=== PATIENT | male | born 1990 | race Caucasian/White ===

== ENCOUNTER → 2021-06-21 16:19 | Outpatient (CLI) | payer OTHER, SELFPAY ==
--- NOTE | 2021-06-21 16:28 | MR_ITS ---
PROCEDURE: MR CERVICAL SPINE WO CON CLINICAL INDICATION: CERVICAL RADICULOPATHY COMPARISON: No exams were available for comparison TECHNIQUE: Standard multiplanar multiecho sequences are performed without contrast. 3-D MIP and myelographic images are also rendered and reviewed FINDINGS: Normal alignment. The craniocervical junction has an unremarkable appearance. C2-C3: Unremarkable. C3-C4: Mild bulging disc with uncovertebral hypertrophy causing moderate right and mild left foraminal narrowing. C4-C5: Unremarkable. C5-C6: Mild bulging disc. Mild left-sided foraminal narrowing from facet and uncovertebral hypertrophy. C6-C7: Degenerative disc disease with bulging disc with mild right and moderate left-sided foraminal narrowing. Canal stenosis at 10 mm. No cord impingement. C7-T1: Unremarkable. IMPRESSION: Multilevel cervical spondylosis. Please see above for detailed description at each level. No extruded herniated disc. Dictated by: Wilder Silva MD 06/24/2021 11:46 Wilder Silva MD in [place] 06/24/2021 11:46
== END ==
PROVIDERS: Visit Provider Orthopaedic Surgery
DX: M54.12 Radiculopathy, cervical region (principal)
CPT/HCPCS: 72141; 76376